=== PATIENT | male | born 1945 | race Caucasian/White ===

== ENCOUNTER → 2017-01-02 | Outpatient (CLI) | payer BC ==
--- NOTE | 2017-01-03 11:47 | DI ---
RIGHT WRIST, 01/02/2017 9:14 AM: Clinical History: Carpal tunnel syndrome of the right wrist. Previous Exam: None at this facility. 3 views are submitted. There is no acute soft tissue, osseous, or joint abnormality. The distance bet ween the scaphoid and lunate bone does appear prominent on the PA projection. Readin. There is no acute abnormality noted. 2. The distance between the scaphoid and lunate bones does appear prominent on the PA projection. Th is may reflect previous injury to the scapholunate ligament.
== END ==
LOC: ORTHO 09:20
PROVIDERS: ATTEND Orthopaedic Surgery
DX: G56.01 Carpal tunnel syndrome, right upper limb (principal)
CPT/HCPCS: 73110

== ENCOUNTER 2017-01-15 14:59 | Day surgery (SDC) | payer BC ==
[~2017-01-15 14:59] MED LIST: LIDOCAINE W/ SODIUM BICARB 0.5 ML SYR ONE; Lactated Ringers 1,000 ML PRIMARY IV ONE; ceFAZolin Inj 2gm (Premix) 50 ML IV ONE
[2017-01-15] MEDS ORDERED: MEPIVACAINE HCL/PF 20 MG/1 ML IV ONE (15:49)
[2017-01-15] MEDS ORDERED: LIDOCAINE 2%/ EPI 1:200,000 - 20 ML VIAL ONE (15:49)
[2017-01-15] MEDS ORDERED: DEXAMETHASONE SOD PHOSPHATE 4 MG/1 ML VIAL ONE (15:50)
[2017-01-15] MEDS ORDERED: BUPivacaine Inj 0.5% PF (5mg/ml) 10ml vial ONE (17:46)
--- NOTE | 2017-01-15 17:57 | CRNA.PROCE ---
Nerve Block Documentation - - Type of Nerve Block Used: Right Axillary Block Position for Nerve Block: Supine Moniters Used During Block: EKG, SPO2, NIBP Oxygen Sumpplented: No Technique: Nerve Stimulator Nerve Block Needle Used: 40 mm ProBlk II Stimulation Hz: 2 Stimulation Staring mA: 1.2 Local Anesthetic - Enter Amt in Comment Field: 2 % Xylocaine with Epinephrine 1: 200,000 (mL): Yes (20ml), 2 % Mepivacaine (mL): Yes (20ml) Additives to Nerve Blocks: Dexamethasone (mg): Yes (8mg(2ml))
[2017-01-15] MEDS ORDERED: ONDANSETRON 4 MG/2 ML VIAL IVP PRN (18:14)
[2017-01-15] MEDS ORDERED: Ondansetron ODT Tab 8 MG TAB PO PRN (18:14)
[2017-01-15] MEDS ORDERED: CALCIUM CARBONATE 500 MG (TUMS) CHEWABLE TABLET PO PRN (18:14)
[2017-01-15] MEDS ORDERED: BISACODYL 10 MG SUPPOSITORY RECTAL PRN (18:14)
[2017-01-15] MEDS ORDERED: HYDROcodone-APAP 7.5 MG-325 MG TABLET PO PRN (18:14)
[2017-01-15] MEDS ORDERED: MAG HYDROX/AL HYDROX/SIMETH 30 ML SUSP PO PRN (18:14)
[2017-01-15] MEDS ORDERED: HYDROmorphone 2 MG/1 ML IVP PRN (18:14)
[2017-01-15] MEDS ORDERED: BISACODYL 5 MG TABLET PO PRN (18:14)
[2017-01-15] MEDS ORDERED: Prochlorperazine Tab 10 MG TAB PO PRN (18:14)
[2017-01-15] MEDS ORDERED: NORMAL SALINE 10 ML SYRINGE FLUSH IVP PRN (18:14)
[2017-01-15] MEDS ORDERED: ACETAMINOPHEN 325 MG TABLET PO PRN (18:14)
[2017-01-15] MEDS ORDERED: IBUPROFEN 400 MG TABLET PO PRN (18:14)
[2017-01-15] MEDS ORDERED: diphenhydrAMINE 25 MG CAPSULE PO PRN (18:14)
[2017-01-15] MEDS ORDERED: Lactated Ringers 1,000 ML PRIMARY IV SCH (18:15)
[2017-01-15] MEDS ORDERED: LIDOCAINE 2% 20 MG/ML - 20 ML VIAL ONE (18:15)
[2017-01-15 19:10] VITALS: RESP 18
[2017-01-15 19:13] VITALS: TEMP 97.4
== END 2017-01-15 19:00 | disposition home or self-care (01) ==
LOC: SDSC 14:59
PROVIDERS: ATTEND Orthopaedic Surgery
DX: G56.01 Carpal tunnel syndrome, right upper limb (principal)
CPT/HCPCS: 64721; J0670; J0690; J1100; J2001; J3490; J7120